=== PATIENT | female | born 1960 | race Caucasian/White ===

== ENCOUNTER 2017-11-27 05:02 | Emergency (ER) | payer OTHER ==
[~2017-11-27] VITALS: Ht 165.1 cm; Wt 63.6 kg
[~2017-11-27 05:02] MED LIST: FLONASE16 G1 BOTH NARES; HYDROCODON-ACE1 EAC7 PO; NAPROSYN250 MG PO; SYNTHROID100 MCG PO; SYNTHROID112 MCG PO; WOMEN'S DAILY1 EAC1 PO; ZANTAC150 MG PO
[2017-11-27] MEDS ORDERED: NAPROSYN500 MG PO (08:18)
[2017-11-27 08:47] VITALS: BP 112/68
== END 2017-11-27 08:48 | disposition home or self-care (01) ==
LOC: EME 05:02
DX: S89.92XA Unspecified injury of left lower leg, initial encounter (principal); X50.1XXA Overexertion from prolonged static or awkward postures, initial encounter
CPT/HCPCS: 73564; 99281; 99284; J1885

== ENCOUNTER 2018-05-05 05:03 | Day surgery (SDC) | payer OTHER ==
[~2018-05-05] VITALS: Ht 165.1 cm; Wt 68.0 kg
[~2018-05-05 05:03] MED LIST changes: +BIOTIN10000 MC1 PO; +CALCIUM PLUS M1 EAC1 PO; +MIRALAX119 GM PO; +NAPROSYN500 MG PO; +SLOW RELEASE I250 MG PO; +VITAMIN B PO
[2018-05-05 05:56] VITALS: BP 104/52
[2018-05-05 12:52] VITALS: BP 94/55
[2018-05-05 13:51] VITALS: BP 89/71
[2018-05-05 15:56] VITALS: BP 97/62
[2018-05-05 19:00] VITALS: BP 133/61
== END 2018-05-05 19:00 | disposition home or self-care (01) ==
LOC: SDC 05:03
PROC: 0SRD069 Replacement of Left Knee Joint with Oxidized Zirconium on Polyethylene Synthetic Substitute, Cemented, Open Approach (ICD-10-PCS; principal; 2018-05-05)
DX: M17.12 Unilateral primary osteoarthritis, left knee (principal); E03.9 Hypothyroidism, unspecified; Z98.84 Bariatric surgery status; Z90.49 Acquired absence of other specified parts of digestive tract; Z82.61 Family history of arthritis; Z82.49 Family history of ischemic heart disease and other diseases of the circulatory system; Z80.9 Family history of malignant neoplasm, unspecified; Z88.5 Allergy status to narcotic agent; Z88.6 Allergy status to analgesic agent
CPT/HCPCS: C1713; J0690; J1100; J1885; J2405; J7050